=== PATIENT | male | born 1995 | race Caucasian/White ===

== ENCOUNTER 2017-04-10 04:11 | Emergency (ER) | payer BC, OTHER ==
[2017-04-10] MEDS ORDERED: LIDO:MAALOX 1:1 20 ML SINGLE DOSE PO ONE (04:30)
--- NOTE | 2017-04-10 04:31 | PHYS DOC ---
Past History Past Medical History: No Pertinent History Past Surgical History: No Surgical History Smoking: Non-smoker Alcohol Use: Occasionally Drug Use: None Adult General Chief Complaint Chief Complaint: CHEST WALL PAIN [facility] HPI This is a pleasant 21-year-old male with no major medical problems presents with chest pain that began about 2 hours prior to arrival described as a sharp stabbing about his xiphoid process lasting only a few seconds at a time. He's been living with his girlfriend for last 8 or 9 months here from [place] soon be moving to [place] for service. He exercises without issue daily he also eats a vegetarian diet. He denies any prior history of the same denies any nausea, vomiting, fevers, chills, shortness of breath, diarrhea, UTI symptoms, trauma, or back pain. The pain is short-lived without radiation to the neck, shoulders, arms, back, or lower abdomen. He denies any sick contacts or recent travel outside the country. When he first rates the pain became very nervous and tightness abdomen which did not help improve or lessen the pain. He is now symptom free as he waits here in the ER. Review of Systems Review of Systems Constitutional: Denies fever or chills [] Eyes: Denies change in visual acuity, redness, or eye pain [] HENT: Denies nasal congestion or sore throat [] Respiratory: Denies cough or shortness of breath [] Cardiovascular: No additional information not addressed in HPI [] GI: Denies abdominal pain, nausea, vomiting, bloody stools or diarrhea [] : Denies dysuria or hematuria [] Musculoskeletal: Denies back pain or joint pain [] Integument: Denies rash or skin lesions [] Neurologic: Denies headache, focal weakness or sensory changes [] Endocrine: Denies polyuria or polydipsia [] Psychiatric: Patient is given a little nervous with the symptoms. Physical Exam Physical Exam Constitutional: Well developed, well nourished, no acute distress, non-toxic appearance. [] HENT: Normocephalic, atraumatic Eyes: PERRLA, EOMI, conjunctiva normal, no discharge. [] Neck: Normal range of motion, no tenderness, supple, no stridor. [] Cardiovascular:Heart rate regular rhythm, no murmur [] no chest wall tenderness to palpation Lungs & Thorax: Bilateral breath sounds clear to auscultation [] Abdomen: Bowel sounds normal, soft, no tenderness, no masses, no pulsatile masses. [] No guarding rebound or organomegaly Skin: Warm, dry, no erythema, no rash. [] Extremities: No tenderness, no cyanosis, no clubbing, ROM intact, no edema. [] Neurologic: Alert and oriented X 3, normal motor function, normal sensory function, no focal deficits noted. [] Psychologic: Affect normal, judgement normal, mood normal. [] EKG EKG EKG timed 4:33 AM from 04/10/[address] Doshi demonstrated normal sinus rhythm at heart rate of 89 there is a Q-wave in V1 and V2 V3 which is likely due to a normal variant patient is young and healthy with no chest pain at this time. No ST segment T-wave changes or reciprocal changes consistent with acute coronary event. [] Radiology/Procedures Radiology/Procedures [] Date 04/10/2017 time 4:32 AM AP and lateral chest 3 actual films. Given patient's torso size demonstrates no pneumothorax, no infiltrate, no subcutaneous tenderness air, no subdiaphragmatic air. Patient's cardiac shows within normal limits bony windows seem to be without fracture. X-ray read by Dr. Doshi Course & Med Decision Making Course & Med Decision Making Pertinent Labs and Imaging studies reviewed. (See chart for details) patient with very atypical chest pain described as sharp and stabbing along the xiphoid. Patient was eating as he describes the chicken as part of his vegetarian diet. Patient denies any shortness of breath or recent travel and by criteria listed below PERC negative Criteria: Age < than 50 years Heart rate < 100 Oxygen saturation > 95% No hemoptysis No estrogen use No prior DVT or PE No unilateral leg swelling No surgery or trauma requiring hospitalization within the prior 4 weeks Differential diagnosis for chest pain: Pericarditis, myocarditis, endocarditis, pneumothorax, pneumonia, aortic dissection, esophageal spasm, esophagitis, peptic ulcer disease, acute coronary syndrome, mediastinitis, Boerhaave syndrome , musculoskeletal chest wall pain, costochondritis, intercostal strain, rib fracture, pulmonary contusion, pneumonitis, pleural effusion, pericardial effusion, pericardial tamponode, and pleurisy. Impression atypical chest pain unclear etiology Disposition follow up PCP given instructions to return for worsening symptoms questions or concerns. [] Dragon Disclaimer Dragon Disclaimer This chart was dictated in whole or in part using Voice Recognition software in a busy, high-work load, and often noisy Emergency Department environment. It may contain unintended and wholly unrecognized errors or omissions. Departure Departure: Impression: Primary Impression: Chest pain of uncertain etiology Disposition: HOME, SELF-CARE Condition: IMPROVED Referrals: PCP,NO (PCP) Patient Instructions: Chest Pain (Nonspecific) Additional Instructions: Please return for any new or increasing symptoms or feel any questions or concerns. I would advise that you not eat close to going to bed at night within 3 hours Reduce the frequency of pain like this in the future. Please return for any questions you might have. I would advise that you follow-up with her primary care doctor for routine violations. Her EKG has an abnormality on it but it likely is a normal variant KELLY DOSHI MD April 10, 2017 04:31
[2017-04-10] MEDS ORDERED: PANT40TA3 PO (05:00)
[2017-04-10 05:15] VITALS: BP 142/86
--- NOTE | 2017-04-10 06:46 | EKG ---
[address] [address] Test Date: 2017-04-10 Test Time: 04:33:03 Pat Name: LATOYA COLLADO Department: Room: Gender: M [employer]: JACOB : 1995 Requested By: KELLY DOSHI Order Number: [id number] Reading MD: Ortega Gonzales Measurements Intervals [place] Rate: 89 P: -59 SC: 124 QRS: 78 QRSD: 78 T: 34 QT: 334 QTc: 407 Interpretive Statements SINUS RHYTHM LVH Electronically Signed On 04-10-2017 10:52:21 CDT by Ortega Gonzales
--- NOTE | 2017-04-10 08:26 | RAD ---
Exam: PA and lateral chest radiograph History: Chest pain beginning tonight. Comparison: None. Findings: Cardiomediastinal silhouette is within normal limits for size. Bilateral lung haynes are free of focal infiltrate. No pleural effusion is seen. Pectus excavatum is seen. There is accentuated kyphosis of the lower thoracic spine. Impression: No acute cardiopulmonary process.
== END 2017-04-10 05:15 | disposition home or self-care (01) ==
LOC: ER 04:11
DX: R07.89 Other chest pain (principal)
CPT/HCPCS: 71020; 93005; 99284-25